=== PATIENT | female | born 1960 | race Caucasian/White ===

== ENCOUNTER → 2020-06-27 00:37 | Outpatient (CLI) | payer OTHER, SELFPAY ==
[2020-06-27 18:59] LABS: SARS-CoV-2 RNA PCR Negative
== END ==
PROVIDERS: PCP Family Medicine Adolescent Medicine; Visit Provider Obstetrics & Gynecology Gynecology
DX: Z01.812 Encounter for preprocedural laboratory examination (principal); Z20.822 Contact with and (suspected) exposure to COVID-19
CPT/HCPCS: C9803; U0003; U0005

== ENCOUNTER 2020-06-27 08:38 | Outpatient (CLI) | payer OTHER, SELFPAY ==
--- NOTE | 2020-06-27 08:50 | ECG_ITS ---
Measurements Intervals [place] Rate: 70 P: 12 WA: 143 QRS: 40 QRSD: 97 T: 45 QT: 380 QTc: 413 Interpretive Statements SINUS RHYTHM BASELINE ARTIFACT- II, III, AVF NORMAL ECG Electronically Signed On 06-27-2020 9:05:49 DINKEY DISPATCHER by Pipe Miller D.O.
[2020-06-27 09:21] LABS: Potassium 4.2 mmol/L (3.4-5.0)
[2020-06-27 09:48] LABS: Anion Gap 5 mmol/L (8-16); Blood Urea Nitrogen 21 mg/dL (7-17); Calcium 9.3 mg/dL (8.4-10.2); Carbon Dioxide 33 mmol/L (22-30); Chloride 104 mmol/L (98-107); Estimated Glomerular Filt Rate > 60; Glucose 112 mg/dL (65-105); Sodium 142 mmol/L (137-145)
== END 2020-06-27 08:39 | disposition home or self-care (01) ==
LOC: ANHSURGERY 08:40
PROVIDERS: Anesthesiology; PCP Family Medicine Adolescent Medicine; Visit Provider Obstetrics & Gynecology Gynecology
DX: E11.9 Type 2 diabetes mellitus without complications (principal); Z01.818 Encounter for other preprocedural examination
CPT/HCPCS: 36415; 80048; 93005

== ENCOUNTER 2020-06-30 02:06 | Day surgery (SDC) | payer OTHER, SELFPAY ==
[2020-06-24 10:07] VITALS: BMI 55.7
--- NOTE | 2020-06-27 15:22 | P.PNAN_ITS ---
Anes - Initial Pre Proc Eval Procedure: Operation Date: 06/30/20 11:30 Proposed Procedures p Hysteroscopy, Dilation and Curettage - Jennifer Ramirez MD Date/Time: 06/27/20 15:22 Surgeon: Jennifer Ramirez MD Pre Op Diagnosis: post menopausal bleeding Patient Data Age: 59 Gender: F Height: 1.52 m Weight: 129.5 kg Allergies Allergy/AdvReac Type Severity Reaction Status Date / Time No Known Allergies Allergy Verified 06/30/20 09:27 Home Medications Medication Instructions Recorded Confirmed Type albuterol 90 mcg INHALATION DAILY PRN 06/24/20 06/30/20 History atorvastatin 10 mg PO DAILY 06/24/20 06/30/20 History losartan 25 mg PO DAILY 06/24/20 06/30/20 History pantoprazole 40 mg PO DAILY 06/24/20 06/30/20 History Patient hx anesthesia problems: none Family hx anesthesia problems: none PMFSH Past Medical History Medical History (Updated 06/30/20 @ 08:17 by Jennifer Ramirez MD) Asthma Chronic GERD HTN (hypertension) Hyperlipidemia Morbid obesity with BMI of 50.0-59.9, adult JOSUÉ on CPAP Osteoarthritis Type 2 diabetes mellitus Surgical History Surgical History (Updated 06/30/20 @ 08:16 by Jennifer Ramirez MD) H/O hand surgery x2 H/O ventral hernia repair History of x 4 Status post hysteroscopic polypectomy 2004 and 2017 Family History Family History (Updated 01/21/17 @ 10:49 by DOCTOR UNKNOWN) Father Family history of premature coronary heart disease, Onset Age: 64 Hypertension Family history of elevated blood lipids Family history of diabetes mellitus in first degree relative Patient's father is Mother Family history of premature coronary heart disease, Onset Age: 64 Hypertension Family history of elevated blood lipids Family history of diabetes mellitus in first degree relative Patient's mother is Other Cerebrovascular accident Diabetes mellitus Family history of arthritis Family history of gout Social History Social History Smoking status: Never smoker Alcohol intake: never Substance use: never Living arrangements: with family Spiritual care concerns: No Anes - Eval Final PreProcedure Day of Procedure 06/27/20 15:22 Patient weight: obese Heart: regular rate and rhythm Lungs: clear to auscultation and normal air movement Airway: Mallampati scale class II Neurological: alert and oriented Last oral intake: >/= 8 hours ASA classification: III Emergent: no Anesthetic plan: proceed Anesthesia type and monitoring: general LMA and ETT Informed Consent: The patient's anesthetic plan and its attendant risks and be nefits were discussed with the patient/family/POA. Questions were solicited and answers provided to the satisfaction of the patient/family/POA.
--- NOTE | 2020-06-30 08:11 | PM.HPGS ---
History of Present Illness History of Present Illness Consent: Risks, benefits, and alternatives have been discussed and questions answered. Patient agrees to proceed with procedure. Chief complaint: post menopausal bleeding Narrative: Danielle Carter is a 59 year old female who was initially seen in April of 2017 for postmenopausal bleeding. The patient underwent a hysteroscopy at that time which showed polyps. The patient did not follow-up since that time until June 19, 2020. On arrival she states she has continued to have bleeding since the procedure in 2018 and more recently for the past 2 months has had bleeding every day. She did not inform the office of the continued bleeding. Is recommended to the patient she proceed with D&C hysteroscopy again as it has been 3 years. Risks of infection, bleeding, and perforation were reviewed with the patient. The possible pathology was also reviewed. Patient states understanding and agrees to proceed. In addition the patient states that she has taken herself off of her metformin in September of 2019 because she was getting sick. She did not follow up with her primary at that time or since then. Review of Systems Review of Systems: Narrative: not repeated day of surgery; patient states no changes in status PMFSH Past Medical History Medical History (Updated 06/30/20 @ 08:17 by Jennifer Ramirez MD) Asthma Chronic GERD HTN (hypertension) Hyperlipidemia Morbid obesity with BMI of 50.0-59.9, adult JOSUÉ on CPAP Osteoarthritis Type 2 diabetes mellitus Surgical History Surgical History (Updated 06/30/20 @ 08:16 by Jennifer Ramirez MD) H/O hand surgery x2 H/O ventral hernia repair History of x 4 Status post hysteroscopic polypectomy 2004 and 2017 Family History Family History (Updated 01/21/17 @ 10:49 by DOCTOR UNKNOWN) Father Family history of premature coronary heart disease, Onset Age: 64 Hypertension Family history of elevated blood lipids Family history of diabetes mellitus in first degree relative Patient's father is Mother Family history of premature coronary heart disease, Onset Age: 64 Hypertension Family history of elevated blood lipids Family history of diabetes mellitus in first degree relative Patient's mother is Other Cerebrovascular accident Diabetes mellitus Family history of arthritis Family history of gout Social History Social History Smoking status: Never smoker Alcohol intake: never Substance use: never Living arrangements: with family Spiritual care concerns: No Meds Home Medications and Allergies Home Medications Medication Instructions Recorded Confirmed Type albuterol 90 mcg INHALATION DAILY PRN 06/24/20 06/24/20 History atorvastatin 10 mg PO DAILY 06/24/20 06/24/20 History losartan 25 mg PO DAILY 06/24/20 06/24/20 History pantoprazole 40 mg PO DAILY 06/24/20 06/24/20 History Allergies Allergy/AdvReac Type Severity Reaction Status Date / Time No Known Allergies Allergy Verified 06/24/20 09:46 Exam Const: General: healthy appearing and alert Orientation/consciousness: patient oriented x3 Resp: Effort & Inspection: normal respiratory effort Auscultation: clear to auscultation bilaterally Cardio: Rate: regular rate Rhythm: regular rhythm GI: GI Palp: Yes Soft to palpation, No Tenderness to palpation present (GI) and No Palpable mass present : External Female Exam: normal external appearance Speculum Exam - Vagina: normal appearance of the vagina and normal vaginal discharge Speculum Exam - Cervix: normal appearance of the cervix Bimanual exam- vagina & uterus: other (suboptimal due to panus) Bimanual Exam- Adnexa, other: No adnexal tenderness Neuro: General: patient oriented x3 Assessment and Plan Assessment and plan (1) Post-menopausal bleeding: Code(s): N95.0 - Postmenopausal bleeding Status: Acut
[2020-06-30] MEDS: ACETAMINOPHEN 500 MG TABLET 1000 MG PO (09:48)
[2020-06-30] MEDS: LACTATED RINGERS 1,000 ML 30 ML IV CONT (09:48)
[2020-06-30 09:53] VITALS: BP 146/55; PULSE 86; RESP 20; TEMP 36.4; O2SAT 97
--- NOTE | 2020-06-30 10:33 | WPDHPUPDATE1 ---
History and Physical Update Update Date/Time: 06/30/20 10:33 History and Physical has been reviewed, including an updated exam of the patient. There are NO changes in the patient's condition. Risks, benefits, and alternatives have been discussed and questions answered. Patient agrees to proceed with procedure.
[2020-06-30] MEDS: KETOROLAC 30 MG/ML VIAL (*BKC) IV PUSH (11:08)
--- NOTE | 2020-06-30 11:16 | PM.PROC ---
Procedure Note - Detailed Date of procedure: 06/30/20 Pre-op diagnosis: post menopausal bleeding Post-op diagnosis: same Procedure performed: D and C hysteroscopy with MyoSure resection Description of procedure: The patient was taken to the operating room and placed under anesthesia in the dorsal lithotomy position. She was prepped and draped in the usual sterile fashion. [place] speculum was placed in the vagina and the cervix is not visible the extra long P[place] speculum is used and the cervix is able to be identified and grasped on the anterior lip with a tenaculum. The cervix is injected with 1% lidocaine and dilated with Hegar 6. The long speculum is removed in the regular [place] speculum is able to visualize the cervix now that it is pulled down with the tenaculum. The hysteroscope was placed with the stated findings. Medium sharp curette is used to sharply curette the endometrium until a good uterine cry was noted in all areas. The hysteroscope was replaced and an additional abnormal areas are still visible. Decision was made to use the MyoSure to resect the abnormal lining. The fluid imbalance of 1L in and 540 out was noted at the end of the 1 later had. The abnormal areas at this time had already been removed therefore the MyoSure device is removed and all instruments are removed. Sponge, needle, and instrument counts are correct per the OR staff. Anesthesia: MAC and local Surgeon: Jennifer Ramirez MD Estimated blood loss (mL): 25 Drains: No Packing: No Pathology: yes (endometrial curettings and shavings) Complications: No immediate complications Condition: stable Disposition: PACU Findings: The uterus sounds to 10cm. There are multiple calcified lesions throughout the cavity. Most are thin and wispy appearing a few are sessile.
[2020-06-30 11:20] VITALS: BP 137/75; PULSE 80; RESP 18; O2SAT 98
--- NOTE | 2020-06-30 11:21 | SUR.OPER ---
DR ESPAÑA INFORMED OF FLUID DEFICET AND RESPONDED.
[2020-06-30 11:27] LABS: Glucose Point of Care 100 (65-105)
[2020-06-30] MEDS: fentaNYL CITRATE INJ (*CRX) 100 MCG/2 ML VIAL 25 MCG IV PUSH ×3 (11:32→11:42)
[2020-06-30 11:50] VITALS: BP 141/72; PULSE 71; RESP 20
[2020-06-30 12:20] VITALS: BP 122/70; PULSE 73; RESP 20
[2020-06-30 12:50] VITALS: BP 112/92; PULSE 56; RESP 20
== END 2020-06-30 13:06 | disposition home or self-care (01) ==
PROVIDERS: PCP Family Medicine Adolescent Medicine; Visit Provider Obstetrics & Gynecology Gynecology
PROC: 0U5B8ZZ Destruction of Endometrium, Via Natural or Artificial Opening Endoscopic (ICD-10-PCS; CPT 58563; principal; 2020-06-30 11:30)
DX: N95.0 Postmenopausal bleeding (principal); D25.0 Submucous leiomyoma of uterus; N84.0 Polyp of corpus uteri; I10 Essential (primary) hypertension; E78.5 Hyperlipidemia, unspecified; J45.909 Unspecified asthma, uncomplicated; K21.9 Gastro-esophageal reflux disease without esophagitis; G47.33 Obstructive sleep apnea (adult) (pediatric); E66.01 Morbid (severe) obesity due to excess calories; Z68.43 Body mass index [BMI] 50.0-59.9, adult
CPT/HCPCS: 58561; 36415; 80048; 82948; 88305; 93005; A9270; C9803; J1100; J1885; J2250; J2405; J2704; J3010; J7030; J7120; U0003; U0005

== ENCOUNTER → 2020-08-18 12:48 | Outpatient (CLI) | payer OTHER, SELFPAY ==
--- NOTE | ~2020-08-18 | DEXA_ITS ---
Bone Density Report Name: Danielle Carter Age: 59 Sex: Female Ethnicity: White Date of : 1960 Indication: postmenopausal; screening for osteoporosis; height loss; asthma or emphysema; Referring Provider: ANDRÉS ESPAÑA Study: Bone densitometry was performed. Exam Date: August 18, 2020 Accession number: [id number] Bone Density: Region BMD T-score Z-score Classification AP Spine (L1-L4) 0.898 -1.4 0.1 Osteopenia Femoral Neck (Left) 0.642 -1.9 -0.6 Osteopenia Total Hip (Left) 0.920 -0.2 0.8 Normal Femoral Neck (Right) 0.793 -0.5 0.8 Normal Total Hip (Right) 0.998 0.5 1.4 Normal Total Hip Mean 0.959 0.2 1.1 Normal World Health Organization criteria for BMD impression classify patients as: Normal (T-score at or above -1.0), Osteopenia (T-score between -1.0 and -2.5), or Osteoporosis (T-score at or below -2.5). 10-year Fracture Risk(1): Major Osteoporotic Fracture 7.1% Hip Fracture 0.7% Reported Risk Factors: [place] (), Neck BMD=0.642, BMI=53.8 Input outside FRAX(R) limits. Adjusted to:Oezpbc=170 kg (1) FRAX(R) Version 3.08. Fracture probability calculated for an untreated patient. Fracture probability may be lower if the patient has received treatment. Clinical Information Provided by Patient: Has the following medical conditions: Asthma or Emphysema Patient maximum height was 63 Menopause Age: 45 Does not regularly consume dairy products Drinks caffeinated beverages Onset of menses at age 12 Number of children 4 Impression: The patient has low bone mass, based on the Left Femoral Neck T-score. The patient has an estimated ten-year risk of hip fracture of 0.7% and an estimated ten-year risk of major fracture of 7.1%, based on the WHO FRAX algorithm. Discussion: BONE DENSITY IS LOW AT ONE OR MORE SKELETAL SITES. This patient's lowest T-score is low at one or more skeletal sites. It meets the World Health Organization's (WHO) criteria for ?low bone mass? (T-score between -1.0 and -2.5). The patient's 10-year risk of fracture as calculated by FRAX is less than the threshold where pharmacological therapy is recommended by the National Osteoporosis Foundation (NOF). However, all treatment decisions require clinical judgment and consideration of individual patient factors, including patient preferences, comorbidities, previous drug use, risk factors not captured in the FRAX model (e.g., frailty, falls, vitamin D deficiency, increased bone turnover, interval significant decline in bone density) and possible under or overestimation of fracture risk by FRAX. The patient should follow a healthful lifestyle (good nutrition with adequate calcium and vitamin D, and appropriate weight-bearing exercise). Follow-Up: Consider repeating this study in 2 to 3 years to reassess this patient's
== END ==
PROVIDERS: Visit Provider Obstetrics & Gynecology Gynecology
DX: Z78.0 Asymptomatic menopausal state (principal); M85.88 Other specified disorders of bone density and structure, other site; M85.852 Other specified disorders of bone density and structure, left thigh
CPT/HCPCS: 77080

== ENCOUNTER 2020-10-28 15:36 | Outpatient (CLI) | payer MEDICARE, SELFPAY ==
--- NOTE | ~2020-10-28 | MM_ITS ---
EXAMINATION: MM screening [facility] BI w [place] HISTORY: Screening mammogram TECHNIQUE: Craniocaudal and mediolateral oblique 3-D tomosynthesis images were obtained and synthetic 2-D images were generated. CAD analysis was submitted and interpreted. COMPARISON: 09/25/2018, 02/10/2017, 07/03/2015 BREAST PARENCHYMAL COMPOSITION: There are scattered areas of fibroglandular density. FINDINGS: There is no evidence of suspicious mass, calcification, or architectural distortion to sugg est malignancy in either breast. There has been no suspicious interval change. IMPRESSION: 1. No mammographic evidence of malignancy. 2. Recommend routine screening mammography in one year. BI-RADS Category 1: Negative Reviewed, dictated and finalized at location A.
== END 2020-10-28 15:37 | disposition home or self-care (01) ==
LOC: ANHIMG 15:41
PROVIDERS: PCP Family Medicine Adolescent Medicine; Visit Provider Obstetrics & Gynecology Gynecology
DX: Z12.31 Encounter for screening mammogram for malignant neoplasm of breast (principal)
CPT/HCPCS: 77063; 77067

== ENCOUNTER 2021-04-16 15:13 | Outpatient (CLI) | payer MEDICARE, SELFPAY ==
--- NOTE | ~2021-04-16 | US_ITS ---
EXAMINATION: US pelvic complete w TV DATE: 04/16/2021 16:20 INDICATION: Postmenopausal bleeding TECHNIQUE: Multiple transabdominal and endovaginal sonographic images of the pelvis were obtained. COMPARISON: 07/13/2013 FINDINGS: The uterus measures 7.8 x 3.5 x 3.8 cm. The endometrial complex measures 7 mm. The ovaries are not visualized however no adnexal abnormality is seen. Nabothian cysts are noted in the cervix. T here is no free fluid in the pelvis. IMPRESSION: 1. Endometrial thickening which may be due to hyperplasia, polyp, or malignancy. Endometrial sampling is recommended. Reviewed, dictated and finalized at location F. L CODER IMPRESSION: 1. Endometrial thickening which may be due to hyperplasia, polyp, or malignancy . Endometrial sampling is recommended.
== END 2021-04-16 15:14 | disposition home or self-care (01) ==
PROVIDERS: PCP Family Medicine Adolescent Medicine; Visit Provider Obstetrics & Gynecology Gynecology
DX: N95.0 Postmenopausal bleeding (principal)
CPT/HCPCS: 76830; 76856

== ENCOUNTER 2021-05-05 14:48 | Emergency (ER) | payer MEDICARE, SELFPAY | END 2021-05-05 14:53 | disposition left against medical advice (07) | LOC: ANHED 15:12 | PROVIDERS: PCP Family Medicine Adolescent Medicine | DX: Z53.21 Procedure and treatment not carried out due to patient leaving prior to being seen by health care provider (principal) | CPT/HCPCS: 99199 ==

== ENCOUNTER 2021-06-30 09:38 | Emergency (ER) | payer MEDICARE, SELFPAY ==
[2021-06-30 10:00] VITALS: BP 148/69; PULSE 82; RESP 24; TEMP 36.3; O2SAT 99
--- NOTE | 2021-06-30 10:03 | ED.FEMALEGU ---
HPI - Female Genitourinary General Chief complaint: Urogenital-Female Stated complaint: UTI Time Seen by Provider: 06/30/21 10:03 Source: patient Mode of arrival: ambulatory Limitations: no limitations History of Present Illness HPI Narrative: 60-year-old female presents with complaint of left flank pain rating around to left lower abdomen. Complaint of dysuria, urinary frequency. Symptoms for 2 days, progressively getting worse. Reports history of kidney infection. Denies fever, chills, nausea, vomiting, fatigue. No history of kidney stones. All systems reviewed and negative except as noted above. Related Data Home Medications Medication Instructions Recorded Confirmed albuterol 90 mcg INHALATION DAILY PRN 06/24/20 06/30/20 atorvastatin 10 mg PO DAILY 06/24/20 06/30/20 losartan 25 mg PO DAILY 06/24/20 06/30/20 pantoprazole 40 mg PO DAILY 06/24/20 06/30/20 Allergies Allergy/AdvReac Type Severity Reaction Status Date / Time No Known Allergies Allergy Verified 06/30/21 10:20 Review of Systems Review of Systems: CONSTITUTIONAL: Denies fever, chills, or sweats. EYES: Denies visual changes, redness, or discharge. ENT: Denies rhinorrhea, congestion, sore throat, or otalgia. CARDIOVASCULAR: Denies chest pain, palpitations, or edema. RESPIRATORY: Denies cough or dyspnea. GASTROINTESTINAL: Denies abdominal pain, nausea, vomiting, or diarrhea. GENITOURINARY: Reports dysuria, frequency. Denies hematuria. SKIN: Denies rash or itching. MUSCULOSKELETAL: Denies back pain, joint pain, or myalgia. NEUROLOGIC: Denies headache, numbness, or weakness. PSYCHIATRIC: Denies anxiety or depression. All other systems reviewed are negative, except as documented in HPI. [facility] Past Medical History Medical History (Updated 06/30/21 @ 10:24 by Myesha South NP) Asthma Chronic GERD HTN (hypertension) Hyperlipidemia Morbid obesity with BMI of 50.0-59.9, adult JOSUÉ on CPAP Osteoarthritis Type 2 diabetes mellitus Surgical History Surgical History (Updated 06/30/20 @ 08:16 by Jennifer Ramirez MD) H/O hand surgery x2 H/O ventral hernia repair History of x 4 Status post hysteroscopic polypectomy 2004 and 2018 Family History Family History (Updated 01/21/17 @ 10:49 by DOCTOR UNKNOWN) Father Family history of premature coronary heart disease, Onset Age: 64 Hypertension Family history of elevated blood lipids Family history of diabetes mellitus in first degree relative Patient's father is Mother Family history of premature coronary heart disease, Onset Age: 64 Hypertension Family history of elevated blood lipids Family history of diabetes mellitus in first degree relative Patient's mother is Other Cerebrovascular accident Diabetes mellitus Family history of arthritis Family history of gout Social History Social History Smoking status: Never smoker Alcohol intake: never Substance use: never Spiritual care concerns: No Comments At time of signature, agree with nursing past medical, surgical, social and family history. There is no relevant family history pertinent to the presenting complaint. Exam Narrative: GENERAL: This is a well-nourished, well-developed patient, in no apparent distress. HEAD: normocephalic, atraumatic. EYES: PERRL. Sclera clear/white. Vision is grossly intact. EARS: External ears normal, auditory canals clear and without drainage, TMs normal without perforation. Hearing grossly intact. NOSE: External nose normal with no obvious nasal discharge, nares without redness, no rhinorrhea. THROAT: Mucous membranes moist, posterior pharynx clear. NECK: Neck supple, non-tender without lymphadenopathy, masses or thyromegaly. CARDIOVASCULAR: Regular rate and rhythm without murmurs, gallops, or rubs. RESPIRATORY: Clear to auscultation. Breath sounds equal bilaterally. No wheezes, rales, or rhonchi. GASTROINTESTINAL: A
== END 2021-06-30 10:30 | disposition home or self-care (01) ==
PROVIDERS: Emergency Provider Nurse Practitioner Family; PCP Family Medicine Adolescent Medicine
DX: N39.0 Urinary tract infection, site not specified (principal); J45.909 Unspecified asthma, uncomplicated; K21.9 Gastro-esophageal reflux disease without esophagitis; I10 Essential (primary) hypertension; E78.5 Hyperlipidemia, unspecified; G47.33 Obstructive sleep apnea (adult) (pediatric); M19.90 Unspecified osteoarthritis, unspecified site; E11.9 Type 2 diabetes mellitus without complications; E66.01 Morbid (severe) obesity due to excess calories; Z68.43 Body mass index [BMI] 50.0-59.9, adult
CPT/HCPCS: 81003; 87077; 87086; 87186; 99213; G0463

== ENCOUNTER 2021-07-10 11:49 | Emergency (ER) | payer MEDICARE, SELFPAY ==
--- NOTE | ~2021-07-10 | CT_ITS ---
EXAMINATION: CT abdomen pelvis w con INDICATION: Right flank pain TECHNIQUE: Computed tomographic images of the abdomen and pelvis were obtained after the administrati on of 100 cc of Omnipaque 350 intravenous contrast. The dose-length product (DLP) was 1517.16 mGy-cm. Automated exposure control and iterative reconstruction technique were employed. COMPARISON: 08/20/2013 FINDINGS: The lung bases are clear. The heart size is normal. There is a small sliding hiatal hernia. The liver, spleen, pancreas, and adrenal glands are normal. Stones are present in the nondistended g allbladder. The kidneys are unremarkable. No stones are identified in the kidneys, ureters, or bladde r. There is no hydronephrosis or hydroureter. No pathologically enlarged abdominal or pelvic lymph no felisha are identified. There is no free intraperitoneal gas or evidence of bowel obstruction. There is m ild lumbar spondylosis. IMPRESSION: 1. No CT correlate for the patient's symptoms. 2. Cholelithiasis Reviewed, dictated and finalized at location B.
[2021-07-10 11:58] VITALS: BP 181/110; PULSE 104; RESP 20; TEMP 37.1; O2SAT 98
[2021-07-10 12:26] LABS: Basophils Absolute Auto 0.1 K/mm3 (0.0-0.1); Eosinophils Absolute Auto 0.3 K/mm3 (0-0.3); Eosinophils Percent Auto 2.6 % (0-4.4); Hematocrit 46.1 % (37.0-47.0); Hemoglobin 14.6 g/dL (12.0-15.0); Immature Granulocyte Absolute 0.05 K/mm3 (0.00-0.031); Immature Granulocyte Percent A 0.5 % (0-0.5); Lymphocytes Absolute Auto 2.69 K/mm3 (0.9-3.2); Lymphocytes Percent Auto 27.7 % (18.3-44.2); Mean Corpuscular HGB Conc 31.7 g/dl (32-36); Mean Corpuscular Hemoglobin 28.2 pg (26-34); Mean Corpuscular Volume 89.2 fl (80-100); Mean Platelet Volume 10.4 fl (7.4-10.4); Monocytes Absolute Auto 0.8 K/mm3 (0.1-0.6); Monocytes Percent Auto 8.7 % (2.6-8.5); Neutrophils Absolute Auto 5.8 K/mm3 (1.3-6.7); Neutrophils Percent Auto 59.5 % (45.5-73.1); Platelet Count Result 264 k/mm3 (150-375); Red Blood Count 5.17 M/mm3 (4.2-5.4); Red Cell Distribution Width 13.5 % (11.5-14.5); White Blood Count 9.7 K/mm3 (4.5-10.0)
[2021-07-10 12:34] LABS: Add Urine Microscopic? YES; Appearance Urine Cloudy (Clear); Bacteria Urine Trace /hpf; Bilirubin Urine Negative (Negative); Blood Urine 2+ (Negative); Color Urine Amber (Yellow); Glucose Urine UA Negative (Negative); Ketones Urine Negative (Negative); Leukocyte Esterase Ur 3+ LEU/UL (Negative); Mucus Urine Rare /lpf; Nitrate Urine Negative (Negative); Protein Urine Negative (Negative); RBC Urine 21-50 /hpf (0-2); Specific Grav Ur 1.013 (1.001-1.035); Squamous Epithelial Cell Urine Many /hpf (Few); Urobilinogen Urine Negative mg/dL (<2.0); WBC Urine >75 /hpf
[2021-07-10 12:38] LABS: Alanine Aminotransferase 16 U/L (4-35); Albumin Level 4.3 g/dL (3.5-5.1); Alkaline Phosphatase 121 U/L (38-126); Anion Gap 5 mmol/L (8-16); Aspartate Amino Transferase 27 U/L (14-36); Bilirubin,Total 0.5 mg/dL (0.2-1.3); Blood Urea Nitrogen 16 mg/dL (7-17); Calcium 8.9 mg/dL (8.4-10.2); Carbon Dioxide 29 mmol/L (22-30); Chloride 106 mmol/L (98-107); Estimated CRCL calculation 72 ml/min; Estimated Glomerular Filt Rate > 60; Glucose 118 mg/dL (65-110); Lipase 68 U/L (23-300); Sodium 140 mmol/L (137-145)
--- NOTE | 2021-07-10 15:02 | ED.FEMALEGU ---
HPI - Female Genitourinary General Chief complaint: Urogenital-Female Stated complaint: Urinary pain Time Seen by Provider: 07/10/21 14:18 Source: patient Mode of arrival: ambulatory Limitations: no limitations History of Present Illness HPI Narrative: 60-year-old female presents today with continued flank pain after being on antibiotics for UTI. Patient states back pain started about 3 weeks ago. Patient was seen by her primary put on Cipro and has noted no relief. Patient denies fevers, body aches, chills, nausea, vomiting, or diarrhea. Related Data Home Medications Medication Instructions Recorded Confirmed albuterol 90 mcg INHALATION DAILY PRN 06/24/20 06/30/20 atorvastatin 10 mg PO DAILY 06/24/20 06/30/20 losartan 25 mg PO DAILY 06/24/20 06/30/20 pantoprazole 40 mg PO DAILY 06/24/20 06/30/20 Allergies Allergy/AdvReac Type Severity Reaction Status Date / Time No Known Allergies Allergy Verified 06/30/21 10:20 Review of Systems Review of Systems: CONSTITUTIONAL: Denies fever, chills, or sweats. EYES: Denies visual changes, redness, or discharge. ENT: Denies rhinorrhea, congestion, sore throat, or otalgia. CARDIOVASCULAR: Denies chest pain, palpitations, or edema. RESPIRATORY: Denies cough or dyspnea. GASTROINTESTINAL: Denies abdominal pain, nausea, vomiting, or diarrhea. GENITOURINARY: Denies dysuria or hematuria. SKIN: Denies rash or itching. MUSCULOSKELETAL: Flank pain. Denies joint pain, or myalgia. NEUROLOGIC: Denies headache, numbness, dizziness, or weakness. PSYCHIATRIC: Denies anxiety or depression. [facility] Past Medical History Medical History Asthma Chronic GERD HTN (hypertension) Hyperlipidemia Morbid obesity with BMI of 50.0-59.9, adult JOSUÉ on CPAP Osteoarthritis Type 2 diabetes mellitus Surgical History Surgical History H/O hand surgery x2 H/O ventral hernia repair History of x 4 Status post hysteroscopic polypectomy 2004 and 2018 Family History Family History Father Family history of premature coronary heart disease, Onset Age: 64 Hypertension Family history of elevated blood lipids Family history of diabetes mellitus in first degree relative Patient's father is Mother Family history of premature coronary heart disease, Onset Age: 64 Hypertension Family history of elevated blood lipids Family history of diabetes mellitus in first degree relative Patient's mother is Other Cerebrovascular accident Diabetes mellitus Family history of arthritis Family history of gout Social History Social History Smoking status: Never smoker Alcohol intake: never Substance use: never Spiritual care concerns: No Exam Narrative: GENERAL: Well-appearing, well-nourished, and in no acute distress. HEAD: Normocephalic, atraumatic. EYES: PERRLA and EOMI. ENT: Nares clear, no rhinorrhea or epistaxis. Mucous membranes moist. Oropharynx without tonsillar hypertrophy exudate or other lesions. Bilateral TMs pearly freed nonbulging NECK: Supple. No adenopathy or masses. No carotid bruits or JVD CHEST: Clear to auscultation. No respiratory distress. No wheezes rales or rhonchi HEART: Regular rate and rhythm. No murmur heard. Normal peripheral pulses. ABDOMEN: No CVA tenderness. Soft, nontender, nondistended, normal active bowel sounds. EXTREMITIES: Normal range of motion. No edema. SKIN: Warm, dry, no rash. NEURO: No focal deficits. Alert and oriented x3. PSYCH: Normal mood and affect. Course LPC/PA Physician Supervision Labs and CT reviewed with patient. Patient aware no stones or pyelonephritis noted on imaging. Discussed urine culture that is previously done. Patient has been on Cipro and urine was resist
== END 2021-07-10 16:25 | disposition home or self-care (01) ==
PROVIDERS: Emergency Medicine; Emergency Provider Nurse Practitioner Family; PCP Family Medicine Adolescent Medicine
DX: N39.0 Urinary tract infection, site not specified (principal); J45.909 Unspecified asthma, uncomplicated; I10 Essential (primary) hypertension; E78.5 Hyperlipidemia, unspecified; E11.9 Type 2 diabetes mellitus without complications; G47.33 Obstructive sleep apnea (adult) (pediatric); K21.9 Gastro-esophageal reflux disease without esophagitis; M19.90 Unspecified osteoarthritis, unspecified site; E66.01 Morbid (severe) obesity due to excess calories; Z68.43 Body mass index [BMI] 50.0-59.9, adult; K80.20 Calculus of gallbladder without cholecystitis without obstruction
CPT/HCPCS: 36415; 74177; 80053; 81001; 83690; 85025; 87077; 87086; 87186; 99284; Q9967

== ENCOUNTER 2021-07-15 08:35 | Outpatient (CLI) | payer MEDICARE, SELFPAY ==
--- NOTE | 2021-07-15 08:39 | ECG_ITS ---
Measurements Intervals [place] Rate: 74 P: -3 SC: 123 QRS: 30 QRSD: 97 T: 34 QT: 385 QTc: 429 Interpretive Statements SINUS RHYTHM BASELINE ARTIFACT LOW QRS VOLTAGE IN PRECORDIAL LEADS [QRS DEFLECTION < 1.0 mV IN CHEST LEADS] NORMAL ECG COMPARED TO ECG 06/27/2020 09:22:39 NO SIGNIFICANT CHANGES Electronically Signed On 07-15-2021 8:51:03 CDT by David Gallagher M.D.
[2021-07-15 09:35] LABS: Amylase 76 U/L (30-110)
== END 2021-07-15 08:36 | disposition home or self-care (01) ==
LOC: ANHSURGERY 08:38
PROVIDERS: PCP Family Medicine Adolescent Medicine; Visit Provider Surgery
DX: Z01.818 Encounter for other preprocedural examination (principal); K80.10 Calculus of gallbladder with chronic cholecystitis without obstruction; I10 Essential (primary) hypertension
CPT/HCPCS: 36415; 82150; 86850; 86900; 86901; 93005

== ENCOUNTER 2021-07-16 01:54 | Day surgery (SDC) | payer MEDICARE, SELFPAY ==
[2021-07-14 14:36] VITALS: BMI 55.3
--- NOTE | 2021-07-14 14:47 | PC.NURSE ---
Report to the Outpatient Waiting Room, entrance under the green pavilion located off [facility], at time 10:00 on date 07/16/21. OR Time: 12:00. - You and your visitor will be asked a series of questions to screen for COVID 19 for your protection. - A mask is required within the hospital. One visitor will be allowed to accompany the patient into the hospital. Patients visitor will be instructed to remain with patient at all times or leave the building. We will allow the visitor to come back to the postoperative area when patient is ready. Preoperative COVID Testing Requirements: TO BRING COPY OF CARD No COVID Test needed if: (proof is required; if not received patient will have Rapid Test prior to entry) - Patient has received COVID Vaccine at least 14 days prior to procedure date or - Patient has positive COVID test result within last 90 days of surgery date. COVID Test needed if above criteria is not met Patients may have clear liquids (water, carbonated beverages, clear teas, apple juice) until 3 hours prior to surgery (9:00) with a maximum of 20 ounces. - No food from midnight until time of surgery Take the following medications with a SIP of water the morning of surgery: MACROBID, INHALER (IF NEEDED) Medications to discontinue per physician: VITAMINS/SUPPLEMENTS Date to take last dose: NO MORE UNTIL AFTER SURGERY Please no make-up, nail swedish, hairspray, perfume, deodorant, or body powder the day of surgery. No jewelry (including any body piercings) or valuables the day of surgery, leave them at home. Please take a shower or bath the night before, or the morning of, surgery with an antibacterial soap. Wear comfortable, loose fitting clothing. HIBICLENS SHOWER - Jewelry must be removed prior to entering the operating room. Rings and piercings that are not removed may be cut off. - The hospital will not accept responsibility for valuables. - Please leave all valuables, including medications, at home the day of surgery. If you are going home after surgery, a licensed set key driver must drive you home. - NO public transportation without another adult. - We recommend that an adult stay with you for 24 hours following discharge. - We also recommend that you do not drive, make important decision, drink alcoholic beverages, or take any drugs that were not prescribed by your health care provider for at least 24 hours after your discharge time. Follow any additional instructions given to you from your surgeon. Telephone instructions given to SOLEDAD ARREDONDO and asked if any additional questions and then verbalized understanding. Patient advised to call surgeon office or pre surgery nurse liaison [phone] if any additional questions.
--- NOTE | 2021-07-15 15:14 | WPDANESEPPF ---
Anes - Initial Pre Proc Eval Procedure: Operation Date: 07/16/21 12:00 Proposed Procedures p Laparoscopic Cholecystectomy - Mely Sanchez MD Date/Time: 07/15/21 15:14 Surgeon: Mely Sanchez MD Pre Op Diagnosis: cholecystitis with cholelithiasis Patient Data Age: 60 Gender: F Height: 1.52 m Weight: 128.37 kg Allergies Allergy/AdvReac Type Severity Reaction Status Date / Time No Known Allergies Allergy Verified 07/16/21 10:02 Home Medications Medication Instructions Recorded Confirmed Type albuterol 90 mcg INHALATION DAILY PRN 06/24/20 07/14/21 History atorvastatin 10 mg PO DAILY 06/24/20 07/16/21 History losartan 25 mg PO DAILY 06/24/20 07/16/21 History pantoprazole 40 mg PO DAILY 06/24/20 07/16/21 History baclofen 10 mg tablet 10 mg PO TID #30 tablet 07/13/21 07/16/21 Rx nitrofurantoin 100 mg PO Q12H 07/13/21 07/16/21 History monohydrate/macrocrystals 100 mg capsule ergocalciferol (vitamin D2) 1,250 mcg PO 2XW 07/14/21 07/16/21 History [Vitamin D2] progesterone micronized 200 mg 200 mg PO QHS 07/14/21 07/16/21 History capsule Patient hx anesthesia problems: none Family hx anesthesia problems: none Results Review: All pre-operative results and documents have been reviewed as part of the pre-operative evaluation. [facility] Past Medical History Medical History Asthma Chronic GERD HTN (hypertension) Hyperlipidemia Morbid obesity with BMI of 50.0-59.9, adult JOSUÉ on CPAP Osteoarthritis Type 2 diabetes mellitus Surgical History Surgical History H/O hand surgery x2 H/O ventral hernia repair History of x 4 Status post hysteroscopic polypectomy 2004 and 2018 Family History Family History Father Family history of premature coronary heart disease, Onset Age: 64 Hypertension Family history of elevated blood lipids Family history of diabetes mellitus in first degree relative Patient's father is Mother Family history of premature coronary heart disease, Onset Age: 64 Hypertension Family history of elevated blood lipids Family history of diabetes mellitus in first degree relative Patient's mother is Other Cerebrovascular accident Diabetes mellitus Family history of arthritis Family history of gout Social History Social History Smoking status: Former smoker Tobacco type: cigarettes Second hand tobacco smoke exposure: No 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 Alcohol intake: never Substance use: never Substance use type: does not use Living arrangements: with family Gender identity (if verbalized by the patient): Female Sexual Orientation (if Verbalized by the Patient): Straight or Heterosexual Spiritual care concerns: No Agree to blood products: Yes Anes - Eval Final PreProcedure Day of Procedure 07/15/21 15:14 Patient weight: obese Heart: regular rate and rhythm Lungs: clear to auscultation and normal air movement Airway: Mallampati scale class II Neurological: alert and oriented Last oral intake: >/= 8 hours ASA classification: III Emergent: no Anesthetic plan: proceed Anesthesia type and monitoring: general ETT Results Review: All pre-operative results and documents have been reviewed as part of the pre-operative evaluation. Informed Consent: The patient's anesthetic plan and its attendant risks and benefits were discussed with the patient/family/POA. Questions were solicited and answers provided to the satisfaction of the patient/family/POA.
[2021-07-16] VITALS (12 sets, daily range): BP systolic 101–154; BP diastolic 56–94; PULSE 59–93; RESP 14–20; TEMP 36.4–36.6; O2SAT 93–100
[2021-07-16] MEDS: ACETAMINOPHEN 500 MG TABLET 1000 MG PO (10:18)
[2021-07-16] MEDS: LACTATED RINGERS 1,000 ML 30 ML IV CONT ×2 (10:34→14:29)
[2021-07-16] MEDS: KETOROLAC 15 MG/ML VIAL (*BKC) IV PUSH (10:35)
[2021-07-16 10:44] LABS: Glucose Point of Care 93 mg/dl (65-105)
--- NOTE | 2021-07-16 11:59 | WPDHPUPDATE1 ---
History and Physical Update Update Date/Time: 07/16/21 11:59 History and Physical has been reviewed, including an updated exam of the patient. There are NO changes in the patient's condition. Risks, benefits, and alternatives have been discussed and questions answered. Patient agrees to proceed with procedure.
[2021-07-16] MEDS: ceFAZolin 3 GM/D5W 100 ML 100 ML IVPB (12:12)
--- NOTE | 2021-07-16 13:48 | W.PM.PROC2 ---
Procedure Note - Detailed Date of Procedure 07/16/21 Pre-op Diagnosis acute cholecystitis with cholelithiasis Post-op Diagnosis Same Procedure Performed Laparoscopic cholecystectomy Surgeon Mely Sanchez MD Anesthesia General Indications 60 y/o F c acute cholecystitis, cholelithiasis Findings acute cholecystitis, cholelithiasis, impacted stones in neck of gallbladder Description of Procedure The patient was taken to the operating room placed in the supine position. After adequate induction of general anesthesia, the patient was prepped and draped in normal sterile fashion. A time-out was then performed to verify the patient's identity as well as the procedure being performed. I then made a 5 mm incision in the infraumbilical region. Through this, a Veress needle was placed into the peritoneal cavity and CO2 gas was then insufflated. After adequate pneumoperitoneum was achieved, the Veress needle was removed and a 5 mm optiview trocar was placed through this incision under direct visualization. I then placed the laparoscope through this trocar site and under direct visualization placed a further 12 mm subxiphoid port as well as 2 additional 5 mm ports in the right upper abdomen. The gallbladder was then identified and was noted to be inflamed, distended, and full of gallstones. There was extensive omental adhesions to the gallbladder and these were carefully taken down both bluntly and with the cautery. Once free of the adhesions, there was noted to be multiple large impacted gallstones in the neck of the gallbladder. The wall of the gallbladder was very thin and friable in this area as it looked like the gallstones were eroding through the wall. I was able to place a grasper at the dome of the gallbladder and this was retracted anterior and cephalad up over the liver. A 2nd retractor was then placed at the infundibulum and retracted laterally, this allowed visualization of the triangle of Calot. Upon placing this 2nd retractor, the gallbladder wall in the neck began to tear. Multiple large stones were noted to come out of the gallbladder at this point. I then extracted the stones through the 12 mm port site. Even with gentle retraction in the distal gallbladder, the wall continued to tear. Given this, I proceeded with a top down technique. The gallbladder was dissected off the liver bed using the bovie cautery from the dome of the gallbladder to the infundibulum. I then was able to visualize the cystic duct in its entirety from its proximal insertion into the gallbladder, to its distal junction with the common hepatic/common bile duct junction. At this point, I carefully skeletonized the proximal cystic duct with the [place] dissector. I then clipped and transected the proximal cystic duct. Next I visualized the cystic artery. Again the artery was skeletonized, clipped, and transected. Once the gallbladder specimen was completely detached, an endo-pouch was placed through the 12 mm port site. I then placed the gallbladder specimen into the Endo pouch and removed the endo-pouch from the 12 mm port site. The specimen will now be sent to pathology for further review. I then copiously irrigated the right upper quadrant. Hemostasis was noted in the liver bed, the clips were noted to be in good position on both the cystic duct stump and the cystic artery stump. No other pathology was noted in the right upper quadrant. I then moved the laparoscope to the subxiphoid port. No iatrogenic injury or other pathology was noted in the lower abdomen. I then closed the 12 mm trocar site under direct visualization using the Bartolome cone and 0 Vicryl suture. At this point, the abdomen was desufflated and all ports removed. All port sites were then closed with 4.O Monocryl subcuticular sutures. Dermabond was placed on each incision. The patient tolerated the procedure well, was extubated in the operating room postoperative and will be transferred to the
[2021-07-16 13:50] LABS: Glucose Point of Care 145 mg/dl (65-105)
[2021-07-16] MEDS: fentaNYL CITRATE INJ (*CRX) 100 MCG/2 ML VIAL 25 MCG IV PUSH ×6 (14:07→14:39)
[2021-07-16] MEDS: HYDROmorphone HCL INJ (*CRX) 1 MG/ML SYR 0.5 MG IV PUSH ×2 (14:52→15:04)
[2021-07-16] MEDS: oxyCODONE HCL (*CRX) 5 MG TAB IR PO (15:41)
== END 2021-07-16 17:02 | disposition home or self-care (01) ==
PROVIDERS: PCP Family Medicine Adolescent Medicine; Visit Provider Surgery
PROC: 0FT44ZZ Resection of Gallbladder, Percutaneous Endoscopic Approach (ICD-10-PCS; CPT 47562; principal; 2021-07-16 12:00)
DX: K80.10 Calculus of gallbladder with chronic cholecystitis without obstruction (principal); I10 Essential (primary) hypertension; E11.9 Type 2 diabetes mellitus without complications; J45.909 Unspecified asthma, uncomplicated; K21.9 Gastro-esophageal reflux disease without esophagitis; E78.5 Hyperlipidemia, unspecified; G47.33 Obstructive sleep apnea (adult) (pediatric); E66.01 Morbid (severe) obesity due to excess calories; Z68.43 Body mass index [BMI] 50.0-59.9, adult; Z79.51 Long term (current) use of inhaled steroids; Z87.891 Personal history of nicotine dependence
CPT/HCPCS: 47562; 36415; 82150; 82948; 86850; 86900; 86901; 88304; 93005; A9270; J0330; J0690; J1100; J1170; J1885; J2250; J2405; J2704; J2710; J3010; J7030; J7120

== ENCOUNTER 2021-07-29 08:55 | Outpatient (CLI) | payer MEDICARE, SELFPAY ==
--- NOTE | ~2021-07-29 | XR_ITS ---
EXAMINATION: XR hip BI 2V w AP pelvis DATE: 07/29/2021 09:21 INDICATION: Bilateral hip pain TECHNIQUE: AP view of the pelvis and two views of each hip were obtained. COMPARISON: None. FINDINGS: Bone alignment is normal. There is no fracture. There is mild osteoarthritis of the hips. M ild osteitis pubis is also noted. The soft tissues are unremarkable. A bone island is noted in the ri ght ilium. IMPRESSION: 1. Mild osteoarthritis of the hips. Reviewed, dictated and finalized at location A.
== END 2021-07-29 08:56 | disposition home or self-care (01) ==
LOC: ANHIMG 08:58
PROVIDERS: PCP Family Medicine Adolescent Medicine; Visit Provider Physician Assistant
DX: M16.0 Bilateral primary osteoarthritis of hip (principal)
CPT/HCPCS: 73521

== ENCOUNTER 2021-11-19 09:07 | Outpatient (CLI) | payer MEDICARE, SELFPAY ==
--- NOTE | ~2021-11-19 | MM_ITS ---
EXAMINATION: MM screening dominick BI w aziza HISTORY: Screening TECHNIQUE: Craniocaudal and mediolateral oblique 3-D tomosynthesis images were obtained and synthetic 2-D images were generated. CAD analysis was submitted and interpreted. COMPARISON: Comparison to multiple prior studies sequentially, with oldest reviewed study dated 09/2014. BREAST PARENCHYMAL COMPOSITION: The breasts are almost entirely fatty. FINDINGS: There is no evidence of suspicious mass, calcification, or architectural distortion to sugg est malignancy in either breast. There has been no suspicious interval change. IMPRESSION: 1. No mammographic evidence of malignancy. 2. Recommend routine screening mammography in one year. BI-RADS Category 1: Negative Reviewed, dictated and finalized at location A.
== END 2021-11-19 09:08 | disposition home or self-care (01) ==
PROVIDERS: PCP Family Medicine Adolescent Medicine; Visit Provider Obstetrics & Gynecology Gynecology
DX: Z12.31 Encounter for screening mammogram for malignant neoplasm of breast (principal)
CPT/HCPCS: 77063; 77067

== ENCOUNTER 2022-04-09 11:51 | Emergency (ER) | payer MEDICARE, SELFPAY ==
--- NOTE | ~2022-04-09 | XR_ITS ---
EXAMINATION: XR chest 2V DATE: 04/09/2022 12:25 INDICATION: Shortness of breath, chest pain and left arm pain. TECHNIQUE: PA and lateral views of the chest were obtained. COMPARISON: Chest radiograph dated 04/30/2018 FINDINGS: The lungs remain clear with no focal airspace opacities, pulmonary edema, pleural effusion or pneumot horax. The cardiomediastinal silhouette is normal. Moderate degenerative skeletal changes in the spin e and at the bilateral acromioclavicular joints. Cholecystectomy clips in right upper quadrant. IMPRESSION: 1. No acute cardiopulmonary disease. Reviewed, dictated and finalized at location A. FOREMAN
--- NOTE | 2022-04-09 11:52 | ECG_ITS ---
Measurements Intervals [place] Rate: 102 P: 62 IA: 135 QRS: 26 QRSD: 90 T: 42 QT: 336 QTc: 440 Interpretive Statements SINUS TACHYCARDIA LOW QRS VOLTAGE IN PRECORDIAL LEADS [QRS DEFLECTION < 1.0 mV IN CHEST LEADS] ABNORMAL RHYTHM ECG COMPARED TO ECG 07/15/2021 08:48:04 NO SIGNIFICANT DIFFERENCE Electronically Signed On 04-09-2022 20:04:21 GOLF SUPERINTENDENT by Darshan Main M.D.
[2022-04-09 11:53] VITALS: BP 145/60; PULSE 102; RESP 20; TEMP 36.7; O2SAT 98
[2022-04-09 12:09] LABS: Basophils Absolute Auto 0.1 K/mm3 (0.0-0.1); Basophils Percent Auto 0.7 % (0.2-1.2); Eosinophils Absolute Auto 0.3 K/mm3 (0-0.3); Eosinophils Percent Auto 3.1 % (0-4.4); Hematocrit 44.6 % (37.0-47.0); Hemoglobin 13.8 g/dL (12.0-15.0); Immature Granulocyte Absolute 0.07 K/mm3 (0.00-0.031); Immature Granulocyte Percent A 0.6 % (0-0.5); Lymphocytes Percent Auto 26.9 % (18.3-44.2); Mean Corpuscular HGB Conc 30.9 g/dl (32-36); Mean Corpuscular Volume 90.7 fl (80-100); Mean Platelet Volume 10.3 fl (7.4-10.4); Monocytes Absolute Auto 0.6 K/mm3 (0.1-0.6); Monocytes Percent Auto 5.8 % (2.6-8.5); Neutrophils Absolute Auto 6.8 K/mm3 (1.3-6.7); Neutrophils Percent Auto 62.9 % (45.5-73.1); Platelet Count Result 226 k/mm3 (150-375); Red Blood Count 4.92 M/mm3 (4.2-5.4); Red Cell Distribution Width 13.1 % (11.5-14.5); White Blood Count 10.8 K/mm3 (4.5-10.0)
[2022-04-09 12:20] LABS: Alanine Aminotransferase 21 U/L (6-35); Albumin Level 4.3 g/dL (3.5-5.1); Alkaline Phosphatase 124 U/L (38-126); Anion Gap 4 mmol/L (8-16); Aspartate Amino Transferase 26 U/L (14-36); Bilirubin,Total 0.9 mg/dL (0.2-1.3); Blood Urea Nitrogen 14 mg/dL (7-17); Calcium 8.7 mg/dL (8.4-10.2); Carbon Dioxide 31 mmol/L (22-30); Chloride 105 mmol/L (98-107); Estimated CRCL calculation 92 ml/min; Estimated Glomerular Filt Rate > 60; Glucose 115 mg/dL (65-110); Lipase 63 U/L (23-300); Potassium 3.9 mmol/L (3.4-5.0); Sodium 140 mmol/L (137-145)
[2022-04-09 12:27] LABS: INR 1.2; Prothrombin Time 14.5 Seconds (11.1-14.7)
[2022-04-09 12:28] LABS: Partial Thromboplastin Time 25.9 SECONDS (22.3-36.8)
[2022-04-09 12:31] LABS: Troponin I < 0.012 ng/mL (0.000-0.034)
--- NOTE | 2022-04-09 14:30 | PC.NURSE ---
patient states that the wait is too long and left from waiting room
--- NOTE | 2022-04-09 14:31 | PC.NURSE ---
Patient educated to return to ED if symptoms worsen or continue.
== END 2022-04-09 14:31 | disposition left against medical advice (07) ==
PROVIDERS: Emergency Provider Emergency Medicine; PCP Family Medicine Adolescent Medicine
DX: R07.9 Chest pain, unspecified (principal)
CPT/HCPCS: 36415; 71046; 80053; 83690; 84484; 85025; 85610; 85730; 93005; 99199

== ENCOUNTER 2022-07-12 10:06 | Outpatient (CLI) | payer OTHER, SELFPAY ==
--- NOTE | ~2022-07-12 | CT_ITS ---
Non-contrast Head CT History: Headache, history of pseudotumor cerebri Technique: Axial non-contrast imaging of the brain was performed. Dose reduction technique was used on this scan by utilizing automated exposure control and iterative reconstruction technique. The dose -length product (DLP) was 605.33 mGy-cm. COMPARISON: 10/27/2007 Findings: There is no evidence of intracranial hemorrhage, mass lesion, or acute infarct. Brain par enchyma appears normal. The ventricles and subarachnoid spaces are normal in size. The calvarium ap pears normal. The visualized paranasal sinuses and mastoid air cells are clear. Impression: No significant abnormality seen. Reviewed, dictated and finalized at location . Impression: No significant abnormality seen.
== END 2022-07-12 10:07 | disposition home or self-care (01) ==
PROVIDERS: PCP Family Medicine Adolescent Medicine; Visit Provider Physician Assistant
DX: R51.9 Headache, unspecified (principal)
CPT/HCPCS: 70450

== ENCOUNTER 2023-02-01 09:41 | Outpatient (CLI) | payer OTHER, SELFPAY ==
--- NOTE | ~2023-02-01 | MM_ITS ---
EXAMINATION: MM screening dominick BI w aziza HISTORY: Screening TECHNIQUE: Craniocaudal and mediolateral oblique 3-D tomosynthesis images were obtained and synthetic 2-D images were generated. CAD analysis was submitted and interpreted. COMPARISON: Comparison to multiple prior studies sequentially, with oldest reviewed study dated 09/2014. BREAST PARENCHYMAL COMPOSITION: Breast composed of scattered areas of fibroglandular density FINDINGS: There is no evidence of suspicious mass, calcification, or architectural distortion to sugg est malignancy in either breast. There has been no suspicious interval change. IMPRESSION: 1. No mammographic evidence of malignancy. 2. Recommend routine screening mammography in one year. BI-RADS Category 1: Negative Reviewed, dictated and finalized at location A.
== END 2023-02-01 09:42 | disposition home or self-care (01) ==
PROVIDERS: PCP Family Medicine Adolescent Medicine; Visit Provider Obstetrics & Gynecology Gynecology
DX: Z12.31 Encounter for screening mammogram for malignant neoplasm of breast (principal)
CPT/HCPCS: 77063; 77067

== ENCOUNTER → 2024-08-30 07:08 | Outpatient (CLI) | payer OTHER, SELFPAY ==
--- NOTE | ~2024-08-30 | XR_ITS ---
EXAMINATION: XR hip RT 2V w AP pelvis DATE: 09/05/2024 10:10 INDICATION: Right hip pain TECHNIQUE: Anteroposterior view of the pelvis and anteroposterior and frog-leg lateral views of the r ight hip were obtained. COMPARISON: 07/29/2021 FINDINGS: Bone alignment is normal. No fracture. Mild lumbar spondylosis with severe bilateral lower lumbar fac et osteoarthritis. Moderate osteitis pubis. Unchanged sclerotic bone islands in the left and right in nominate bones. Soft tissues are unremarkable. IMPRESSION: 1. No fracture or acute osseous abnormality. Reviewed, dictated and finalized at location A.
== END ==
PROVIDERS: PCP Nurse Practitioner Family; Visit Provider Nurse Practitioner Family
DX: M25.551 Pain in right hip (principal); M47.896 Other spondylosis, lumbar region
CPT/HCPCS: 73502

== ENCOUNTER 2024-10-11 09:47 | Outpatient (CLI) | payer OTHER, SELFPAY ==
--- NOTE | ~2024-10-11 | MR_ITS ---
MRI of the lumbar spine Clinical History: Spondylosis Technique: Axial T2-weighted images, and sagittal T1-weighted, T2-weighted, and T2 fat-sat images wer e acquired. Findings: There is no fracture or subluxation of lumbar spine. Vertebral bodies maintain normal heigh t and alignment. No suspicious bone marrow signal abnormality seen. At L1-L2, there is mild degenerative spurring. There is mild facet arthropathy. No spinal canal steno sis or neural foraminal narrowing. At L2-L3, there is mild degenerative disc narrowing. No disc bulge or herniation. There is moderate f acet arthropathy. No central canal stenosis or neural foraminal narrowing. At L3-L4, there is minimal disc bulge with moderate facet arthropathy. No central canal stenosis or n eural foraminal narrowing. At L4-L5, there is diffuse disc bulge with advanced facet arthropathy, resulting in severe spinal can al stenosis/thecal sac compression. Neural foramina are preserved. At L5-S1, there is mild disc bulge with severe facet arthropathy. No melany central canal stenosis. Th ere is mild left neural foraminal narrowing. Right neural foramen preserved. Paravertebral soft tissues are unremarkable. Impression: Severe degenerative spondylosis at L4-L5, as detailed above. Mild degenerative change in the remainder of the lumbar spine. Reviewed, dictated and finalized at [facility]. Impression: Severe degenerative spondylosis at L4-L5, as detailed above. Mild degenerative change in the remainder of the lumbar spine.
== END 2024-10-11 09:48 | disposition home or self-care (01) ==
LOC: MICIMG 09:48
PROVIDERS: PCP Nurse Practitioner Family; Visit Provider Nurse Practitioner Family
DX: M47.26 Other spondylosis with radiculopathy, lumbar region (principal)
CPT/HCPCS: 72148

== ENCOUNTER 2024-12-24 08:01 | Outpatient (CLI) | payer OTHER, MEDICAID, SELFPAY ==
--- OUTSIDE RECORDS SUMMARY | 2024-12-24 08:17 | XMS_ITS ---
Author Name Marii PICKERING, MRS. [place] npal Address [address] [place] [address] Phone [phone] Organization [facility] Care Team Providers Care Editor Trade Journal Name Role Phone Shahrzad Colvin Unavailable [phone] Hilda Valentin Unavailable [phone] Rodrigo Aguilar Unavailable [phone] Reason for Referral Not Available Allergies, adverse reactions, alerts No known allergies History of medication use Medication Class Instructions Start Date End Date Baclofen 10 mg Tab 1 tablet orally 3 ti mes per day as needed 2024-11-01 No Data Available Pantoprazole Sodium 40 mg Tab delayed rel TAKE 1 TABLET BY MOUTH EVERY DAY 2024-06-21 No Data Available Losartan Potassium 50 mg Tab TAKE 1 TABLET BY MOUTH ONCE DAILY 2024-01-01 No Data Available Atorvastatin Calcium 10 mg Tab TAKE 1 TABLET BY MOUTH EVERY DAY 2024-06-22 No Data Available Progesterone 200 mg Cap TAKE 1 CAPSULE B Y MOUTH EVERY DAY 2024-06-12 No Data Available Progesterone 100 mg Cap TAKE 1 CAPSULE B Y MOUTH EVERY DAY 2023-01-05 No Data Available Meloxicam 15 mg Tab 1 tablet orally daily 2024-11-01 No Data Available Mounjaro 15 mg/0.5ML Solution Auto-injector INJECT 15 MG (0.5 ML) SUBCUTANEOUSLY WEEKLY WEEK 21 OF THERAPY AND ONGOING 2024-06-05 No Data Available Albuterol Sulfate HFA 108 (90 Base) MCG/ACT Aerosol Solution INHALE 2 PUFFS EVERY 4 HOURS NEEDED FOR SHORTNESS OF BREATH OR FOR WHEEZE 2024-02-06 No Data Available Clotrimazole-Betamethasone 1-0.05 % Crm 1 application topically to affected area 2 times per day 2024-11-01 No Data Available Problem List Problem Status Onset Date Resolved Date Synopsis Moderate persistent asthma, uncomplicated Active 2024-09-12 N/A N/A Type 2 diabetes mellitus wit h diabetic polyneuropathy Active 2024-09-12 N/A N/A Mixed hyperlipidemia Active 2024-09-12 N/A N/A Essential (primary) hypertension Active 2024-09-12 N/A N/A JOSUÉ (obstructive sleep apnea) Active 2024-11-01 N/A wears CPAP QHS, last sleep study done in 2018 Obesity, morbid, BMI 40.0-49.9 Active 2024-11-01 N/A N/A Candidiasis of breast Active 2024-11-01 N/A N/A Other spondylosis with radiculopathy, lumbar region Active 2024-11-01 N/A N/A Encounters Encounters Type Facility Date of Service Diagnosis/Co mplaint Home visit for evaluation and management of new patient requiring medically appropriate examination and moderate level of medical decision making. If using time, at least 60 minutes total time on [facility] 11/01/2024 Moderate persistent asthma, uncomplicatedType 2 diabetes mellitus with diabetic polyneuropathyMixed hyperlipidemiaEssential (primary) hypertensionObstructive sleep apnea (adult) (pediatric)Morbid (severe) obesity due to excess caloriesOther sites of candidiasisOther spondylosis with radiculopathy, lumbar regionBody mass index (BMI) 45.0-49.9, adult Home visit for evaluation and management of new patient requiring medically appropriate examination and moderate level of medical decision making. If using time, at least 60 minutes total time on [facility] 11/01/2024 Essential (primary) hypertensionType 2 diabetes mellitus with diabetic polyneuropathy Home visit for evaluation and management of new patient requiring medically appropriate examination and moderate level of medical decision making. If using time, at least 60 minutes total time on [facility] 11/01/2024 Essential (primary) hypertensionType 2 diabetes mellitus with diabetic polyneuropathy Home visit for evaluation and management of new patient requiring medically appropriate examination and moderate level of medical decision making. If using time, at least 60 minutes total time on [facility] 11/01/2024 Morbid (severe) obes ity due to excess calories Vital Signs Date of Collection Vitals 2024-11-01 12:35:00 Height - 152.4 cmWei ght - 107.05 kgBody Mass Index (BMI) - 46.09 kg/m2BP Diastolic - 65.0 mm[Hg]BP Systolic - 107.0 mm[Hg]Heart Rate - 75.0 /minRespiratory Rate - 18.0 /minO2 % BldC Oximetry - 99.0 % Social History Sex Female History of Procedures Procedures Service Procedure code Service date Servicing provider Phone# Home visit for evaluation and management of new patient requiring medically appropriate examination and moderate level of medical decision making. If using time, at least 60 [place] [id number] 2024-11-01 No Data Available No Data Availa ble Most recent systolic blood pressure <130 mm Hg 3074F 2024-11-01 No Data Available No Data Availa ble Most recent dystolic blood pressure <80 mm Hg 3078F 2024-11-01 No Data Available No Data Availa ble Patient screened for fall risk; no falls in the last year or 1 fall with no injury in the last year 1100F 2024-11-01 No Data Available No Data Avail able Functional Status Functional Category Effective Dates does not drive 2024-11-01 her children or daughter in law take her to stores, appts. etc. 2024-11-01 lives alone ( last ye ar) 2024-11-01 independent of ADL's; grab bars in [place] 2024-11-01 Mental Status Status Date no cognitive issues were noted 2024-10-16 7 Assessments Date of Service Assessments 2024-11-01 12:35:00 Moderate persistent asthma, uncomplicatedType 2 diabetes mellitus with diabetic polyneuropathyMixed hyperlipidemiaEssential (primary) hypertensionOSA (obstructive sleep apnea)Obesity, morbid, BMI 40.0-49.9Candidiasis of breastOther spondylosis with radiculopathy, lumbar region Plan of Care Date of Service Plans 2024-11-01 12:35:00 stablecontinue albut sim inhaler [id number] by PCPcontrolled with last A1C October 2023 was 5.4. Unable to review the 08/2024 resultcontinue Mounjaro injection weeklymanaged by PCPchroniccontinue atorvastatin 10 mg once dailyheart healthy dietBP controlledcontinue losartan 50 mg once dailycontinue drinking >60 oz water dailyencouraged to increase exercise amountdiscussed sodium and caffeine effects on BPchronicneeding a new sleep study, ordered by PCP, for reevaluation due to significant weight losscontinue current Bipapmanaged by PCPcontinued weight loss since starting Mounjaro weekly injectionencouraged increasing walking time or other modes of exercisemonitor weightcurrently treated with clotrimazole/betamethasone cream twice dailyRequesting nystatin powder as it is easier to apply and is more effectivechronic low back painlumbar MRI done 09/2024Neurosurgery appt on 11/12/2024 at 2:30 pm Goals Date Goal 2024-11-01 Neurosurgery appt on 11/12/2024 at 2:30 pm 2024-11-01 Counseled patient on both lifestyle changes and diabetes self- management education Health Concerns Date Concern 2024-11-01 Healthy House Calls is a service that involves a physician or advanced practice provider conducting comprehensive assessments in your patient s home or virtually to address crucial areas such as chronic conditions, quality gaps, social concerns, fall risk prevention, and various screenings. Please note that your patient will remain attributed to you even though they are participating in this service. If you have any questions, please reach out directly to our team at the phone number above.Your patient, Danielle Carter, 1960, was seen today for a Healthy House Call visit. Patient read rights and responsibilities and consented to treatment. The purpose of this summary is to update you on the patient's current health status and share any relevant findings from the examination. 2024-11-01 Healthy House Calls is a service that involves a physician or advanced practice provider conducting comprehensive assessments in your patient s home or virtually to address crucial areas such as chronic conditions, quality gaps, social concerns, fall risk prevention, and various screenings. Please note that your patient will remain attributed to you even though they are participating in this service. If you have any questions, please reach out directly to our team at the phone number above.Your patient, Danielle Carter, 1960, was seen today for a Healthy House Call visit. Patient read rights and responsibilities and consented to treatment. The purpose of this summary is to update you on the patient's current health status and share any relevant findings from the examination. 2024-11-01 A1C in October 2023 was 5.4. Unable to review recent A1C. Has been on Mounjaro since June 2023. She checks her blood sugars every couple of days. 2024-11-01 Gyne appt on 01/2025 . She is due for mammogram and DEXA bone scan. She skipped last year due to husbands in 02/2024. She is aware. 2024-11-01 Patient has a Neuros urgeon appt on November 12 for disc deterioration (L4-L5 are really bad); had recent lumbar MRI done. 2024-11-01 Patient reports she is to have a sleep study test done again - due to her weight loss (Lost about 60 lbs; was at 298#) and bipap parameters are off. Needs CPAP now, has been on Bipap since 2006. 2024-11-01 Will request from ei ther PCP or gyne dr for refill on nystatin powder as it works best.
--- NOTE | 2025-01-15 08:46 | P.SLEEP_ITS ---
Sleep Study Date of Study: 12/24/24 Ordering Provider: Danielle Agrawal APRN Interpreting Physician: Brooke Swanson DO Sleep Study Type: Split Polysomnogram Height: 1.52 m Weight: 100.244 kg Body Mass Index: 43.1 Neck Circumference (inches): 16 [place]: 11 Reason for Sleep Study Daytime hypersomnia Sleep History The patient is a 64-year-old female that had a sleep study ordered by her primary care for evaluation sleep apnea. The patient was previously diagnosed with severe sleep apnea and is on BPAP therapy. She has lost a significant amount of weight and she feels like her current pressure settings are too high. she occasionally awakens from sleep short of breath. She occasionally awakens at night with heartburn, belching or cough. She constantly snores loudly enough that others complain. She constantly has trouble sleeping when she has a cold. She occasionally wakes up gasping for air throughout the night. She occasionally sweats excessively at night. She occasionally has heart palpitat ions or irregular heartbeats during the night. She occasionally falls asleep during the day but never while driving. She rarely experiences loss of muscle tone when extremely emotional. She denies having trouble at school or work due to sleepiness. She occasionally feels unable to move while waking up or falling asleep. She rarely experiences vivid dreamlike scenes upon awakening or falling asleep. She denies feeling afraid of going to sleep. She denies having nightmares. She occasionally remembers her dreams. She occasionally has thoughts racing through her mind. She frequently feels sad, depressed and anxious. She occasionally has muscular tension. She denies noticing parts of her body jerk. She rarely kicks during the night. She constantly has crawling and aching feelings in her legs and constantly has leg pain during the night. She frequently grinds her teeth during sleep and frequently awakens with morning jaw pain. She is constantly bothered by pain during the day and frequently awakened by pain during the night. She occasionally wakes up feeling stiff in the morning. She occasionally wakes up with sore or achy muscles. She occasionally wakes up with pain in the neck, spine and other joints. She goes to bed between 830-9 p.m.. It takes her an hour to fall asleep. She wakes up several times throughout the night for unknown reasons and she is mostly unable to fall back asleep. She wakes up at 5:00 a.m. on weekdays and between 5-7 a.m. on the weekends. He typically gets 5-8 hours of sleep per nig ht. She will stay in bed for a few minutes after waking up in morning. She currently lives alone. She denies consuming any caffeinated beverages within 2 hours of bedtime. She denies reading before falling asleep. She denies watching television before falling asleep. She denies taking naps in afternoon or the evening. She denies consuming any caffeinated beverages throughout the day. She use to smoke cigarettes 30 years ago. She denies alcohol and recreational drug use. [facility] Past Medical History Medical History Pseudotumor cerebri History of cardioversion Cholelithiasis Type 2 diabetes mellitus Osteoarthritis HTN (hypertension) Hyperlipidemia Surgical History Surgical History History of endometrial biopsy History of surgical removal of lesion History of hysteroscopy Hx of umbilical hernia repair History of carpal tunnel release History of cholecystectomy 07/16/21 H/O hand surgery x2 Status post hysteroscopic polypectomy 2004 and 2017 H/O ventral hernia repair History of x 4 Family History Family History Father Family history of premature coronary heart disease, Onset Age: 64 Hypertension Family history of elevated blood lipids Family history of diabetes mellitus in first degree relative Patient's father is Mother Family history of premature coronary heart disease, Onset Age: 64 Hypertension Family history of elevated blood lipids Family history of diabetes mellitus in first degree relative Patient's mother is Other Cerebrovascular accident Diabetes mellitus Family history of arthritis Family history of gout Social History Social History Smoking status: Former smoker Tobacco type: cigarettes Second hand tobacco smoke exposure: No 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 Alcohol intake: never Substance use: never Substance use type: does not use Living arrangements: with family Occupation/Education: retired Gender identity (if verbalized by the patient): Female Sexual Orientation (if Verbalized by the Patient): Straight or Heterosexual Spiritual care concerns: No Agree to blood products: Yes Medications Home Medications ?Medication ?Instructions ?Recorded ?Confirmed ?Type progesterone micronized 100 mg 100 mg PO QPM 03/08/23 11/12/24 History capsule ergocalciferol (vitamin D2) 1,250 1,250 mcg PO .ever o ther week 08/02/23 08/30/24 History mcg (50,000 unit) capsule (Vitamin D2) pantoprazole 40 mg tablet,delayed 40 mg PO DAILY #90 t abs 06/21/24 11/12/24 Rx release atorvastatin 10 mg tablet See Rx Instructions .Route 0 06/22/24 11/12/24 Rx .COMPLEX #90 tabs meloxicam 15 mg tablet See Rx Instructions .Route 0 06/22/24 11/12/24 Rx .COMPLEX #90 tabs albuterol sulfate 90 mcg/actuation 2 inh inhalation Q4 H PRN shortness 07/06/24 11/12/24 Rx aerosol inhaler of breath or wheezing #8.5 g francesco fluticasone furoate 100 1 inh inhalation DAILY #60 e a 07/19/24 08/30/24 Rx mcg-vilanterol 25 mcg/dose inhalation powder (Breo Ellipta) losartan 50 mg tablet See Rx Instructions .Route 0 11/23/24 Rx .COMPLEX #90 tabs blood sugar diagnostic (FreeStyle #100 ea 12/21/24 Rx Lite Strips) blood-glucose meter (FreeStyle #1 ea 12/21/24 Rx Lite Meter kit) zolpidem 5 mg tablet 5 mg PO QHS PRN insomnia #1 tablet 12/24/24 Rx tirzepatide 10 mg/0.5 mL 10 mg (0.5 mL) subcut WEEKLY #2 mL 12/31/24 Rx subcutaneous pen injector (Tetounabbiro) lancets 28 gauge (FreeStyle #100 ea 01/09/25 Rx Lancets) Sleep Procedure A full night split study using the [employer] SleepM2 [employer] multi-channel system recorded the standard physiologic parameters including EEG, EOG, submentalis EMG, anterior tibialis EMG, EKG, body position, nasal and oral airflow using nasal pressure sensor and thermistor.? Respiratory parameters of chest and abdominal movements were recorded with Respiratory Inductance Plethysmography belts. Oxygen saturation was recorded by pulse oximetry. Video monitoring was also performed. Sleep stages, periodic limb movements, and EEG arousals were scored in 30 second epochs according to the criteria of the AASM Scoring Manual. The Apnea-Hypopnea Index was calculated using [facility] guidelines for definition of hypopnea with 4% O2 desaturations while scoring respiratory events. Sleep Architecture During the diagnostic portion of the study, the total recording time was 251.8 minutes. The total sleep time was 170.5 minutes. Sleep latency was 9.3 minutes.? REM latency was 151.5 minutes. Sleep Efficiency was 67.7%. The patient had 38 awakenings for an awakening index of 13.4. Wake after sleep onset time was 72.0 minutes. The patient spent 51.5 minutes, 30.2% of total sleep time in Stage N1. The patient spent 100.0 minutes, 58.7% in Stage N2. The patient spent 0.0 minutes, 0.0% in Stage N3. The patient spent 19.0 minutes, 11.1% in Stage REM sleep. At 03:03:45 AM the patient was placed on PAP treatment and was titrated at pressures ranging from 4 cm H20 up to 8 cm H20. During the treatment portion of the study, the total recording time was 178.0 minutes.? The total sleep time was 147.5 minutes. Sleep latency was 7.5 minutes. REM latency was 54.0 minutes. Sleep Efficiency was 82.8%. Wake after Sleep Onset time was 23.0 minutes. The patient spent 32.0 minutes, 21.7% of total sleep time in Stage N1. The patient spent 83.0 minutes, 56.3% in Stage N2. The patient spent 0.0 minutes, 0.0% in Stage N3. The patient spent 32.5 minutes, 22.0% in Stage REM. Respiratory Analysis During the diagnostic portion of the study, the patient had 85 hypopneas and 7 obstructive apneas for an overall Apnea Hypopnea Index of 32.4 events per hour. The REM Apnea Hypopnea Index was 47.4. The NREM Apnea Hypopnea Index was 30.5. The patient had a Central Apnea Hypopnea Index of 0. There was no evidence of Spencer-Ramirez Respirations. During the treatment portion of the study, the patient had 15 hypopneas for an overall Apnea Hypopnea Index of 6.1 events per hour. The REM Apnea Hypopnea Index was 11.1. The NREM Apnea Hypopnea Index was 4.7. The patient had a Central Apnea Hypopnea Index of 0. There was no evidence of Spencer-Ramirez Respirations. The patient was started on CPAP 4 cm H2O and titrated to CPAP 8 cm H2O due to hypopneas. The patient was able to fall asleep starting on CPAP 4 cm H2O. The patient was able to achieve REM sleep starting on CPAP 6 cm H2O. The patient was able to achieve a residual AHI less than 5 with both NREM and REM sleep on the final pressure setting. On CPAP 8 cm H2O, the patient spent 47 minutes in NREM and 4 minutes in REM with no respiratory events, resulting in an AHI of 0. The patient had a sleep efficiency of 93.6% on this pressure setting. Arousals During the diagnostic portion of the study, there were a total of 98 arousals for an arousal index of 34.5.? There were 13 respiratory arousals for an index of 4.6. There were 12 periodic limb movement arousals for an index of 4.2.? There were 12 isolated limb movement arousals for an index of 4.2. There were 61 spontaneous arousals for an index of 21.5. During the treatment portion of the study, there were a total of 41 arousals for an index of 16.7.? There were 0 respiratory arousals for an index of 0. There were 19 periodic limb movement arousals for an index of 7.7.? There were 5 isolated limb movement arousals for an index of 2.0. There were 18 spontaneous arousals for an index of 7.3. Periodic Limb Movements During the diagnostic portion of the study, the patient had 31 isolated limb movements with an index of 10.9. The patient had 33 periodic limb movements with an index of 11.6. The patient had a total of 64 limb movements with a total limb movement index of 22.5. During the treatment portion of the study, the patient had 9 isolated limb movements with an index of 3.7. The patient had 48 periodic limb movements with an index of 19.5, which is elevated (normal < 15). The patient had a total of 57 limb movements with a total limb movement index of 23.2. Oximetry Data During the diagnostic portion of the study, the patient had an average oxygen saturation of 96% in wake with a minimum oxygen saturation of 85% and a maximum oxygen saturation of 99%. The patient had an average oxygen saturation of 93.6% in sleep with a minimum oxygen saturation of 76.0% and a maximum oxygen saturation of 99.0%. The patient had 102 oxygen desaturations resulting in an Oxygen Desaturation Index of 35.9. The patient spent 7.8 minutes, 3.1% of total sleep time with an oxygen saturation less than 88%. During the treatment portion of the study, the patient had an average oxygen saturation of 95.6% in wake with a minimum oxygen saturation of 93.0% and a maximum oxygen saturation of 98.0%. The patient had an average oxygen saturation of 94.3% in sleep with a minimum oxygen saturation of 87.0% and a maximum oxygen saturation of 99.0%. The patient had 23 oxygen desaturations resulting in an Oxygen Desaturation Index of 9.4. The patient spent 0.4 minutes, 0.2% of total sleep time with an oxygen saturation less than 88%. Snoring Profile Mild snoring was present intermittently in the baseline portion of the study. The snoring resolved once the patient was titrated to CPAP 8 cm H2O. Cardiac Profile The EKG lead showed normal sinus rhythm. No arrhythmias or premature beats were seen. During the diagnostic portion of the study, the average pulse rate was 82.8 bpm.? The minimum pulse rate was 67.0 bpm. The maximum pulse rate was 105.0 bpm. During the treatment portion of the study, the average pulse rate was 78.6 bpm.? The minimum pulse rate was 70.0 bpm. The maximum pulse rate was 100.0 bpm. EEG Profile No signs of seizure activity seen. Assessment and Plan Assessment and Plan (1) Obstructive sleep apnea (adult) (pediatric): Code(s): G47.33 - Obstructive sleep apnea (adult) (pediatric) Status: Acute Assessment and Plan: In the baseline portion of the study, the patient had an overall AHI of 32.4 with desaturation down to 85%. This is consistent with severe sleep apnea. The patient was started on CPAP 4 cm H2O and titrated to CPAP 8 cm H2O due to hypopneas. The patient's sleep apnea resolved on the final pressure setting. I recommend that the patient be prescribed CPAP 8 cm H2O, size large Solo nasal pillows with chinstrap, CPAP filters/tubing and heated humidity. This should be used with all episodes of sleep.? Compliance should be reviewed within 31-90 days of starting therapy for usage greater than 4 hours per night greater than 70% of the nights. The patient should be asked about symptoms such as?excessive daytime sleepiness, quality of sleep, decreased nocturia, increased?mental functioning such as memory, mood, and concentration. Data The data obtained during this sleep study is adequate for interpretation. Certification This sleep study has been reviewed by a board certified sleep medicine physician.
[2025-01-17 10:29] VITALS: BMI 43.1
== END 2024-12-25 07:16 | disposition home or self-care (01) ==
LOC: ANHCSM 08:01
PROVIDERS: PCP Nurse Practitioner Family; Visit Provider Nurse Practitioner Family
DX: G47.33 Obstructive sleep apnea (adult) (pediatric) (principal)
CPT/HCPCS: 95811

== ENCOUNTER 2025-01-13 10:07 | Emergency (ER) | payer OTHER, MEDICAID, SELFPAY ==
--- NOTE | ~2025-01-13 | XR_ITS ---
Examination: XR knee RT 3V Clinical History: RT medial knee pain and instability 2yrs no injury Comparison: None Technique: 3 views right knee Findings/impression: 1. No fracture, dislocation, or effusion right knee. 2. Severe patellofemoral compartment joint space narrowing with vroq-gc-[id number] contact and large associated femoral degenerative changes. 3. Minimal lateral patellar subluxation. 4. Moderate medial compartment joint space narrowing. Reviewed, dictated and finalized at location R.
[2025-01-13 10:15] VITALS: BP 135/66; PULSE 74; RESP 18; TEMP 36.6; O2SAT 100
--- NOTE | 2025-01-13 10:21 | ED.GENADULT ---
HPI - General Adult General Chief complaint: Extremity Injury, Lower Stated complaint: Right Knee Pain Time Seen by Provider: 01/13/25 10:21 Source: patient, RN notes reviewed and old records reviewed Mode of arrival: ambulatory Limitations: no limitations History of Present Illness HPI narrative: 64-year-old female who presents to [facility] with complaints of 2 year history of increasing right knee pain with significant increase of pain in the past 2 month and in past 2 weeks she has fallen twice due to instability of her right knee. Patient reports that in 2019 she did sustain fall and was told that she sprained or strained her knee at that time. Patient reports that she takes Tylenol arthritis daily and also has been taking some Prednisone that her doctor ordered for her which has not helped. MD complaint: right knee pain Onset (ago): year(s) (yrs with increased symptoms past 2 month with recent instability and fall within past 2 weeks.) Location: right and lower extremity (knee) Severity scale (1-10): 5 Treatments prior to arrival: other (Tylenol arthritis and is on daily Meloxicam) Related Data Home Medications ?Medication ?Instructions ?Recorded ?Confirmed ?Last Taken ?Type progesterone micronized 100 mg 100 mg PO QPM 03/08/23 11/12/24 Unknown History capsule ergocalciferol (vitamin D2) 1,250 1,250 mcg PO .ever other week 08/02/23 08/30/24 Unknown History mcg (50,000 unit) capsule (Vitamin D2) Allergies Allergy/AdvReac Type Severity Reaction Status Date / Time vaccine adjuvant system, AdvReac Intermediate Other Verified 01/13/25 10:09 AS01B liposomal (From Shingrix (PF)) varicella-zoster virus AdvReac Intermediate Other Verified 01/13/25 10:09 glycoprotein E, recombinant (From Shingrix (PF)) metformin AdvReac Unknown Gastrointestinal Verified 01/13/25 10:09 Upset Review of Systems Review of Systems: CONSTITUTIONAL: Denies fever, chills, or sweats. EYES: Denies visual changes, redness, or discharge. ENT: Denies rhinorrhea, congestion, sore throat, or otalgia. CARDIOVASCULAR: Denies chest pain, palpitations, or edema. RESPIRATORY: Denies cough or dyspnea. GASTROINTESTINAL: Denies abdominal pain, nausea, vomiting, or diarrhea. GENITOURINARY: Denies dysuria or hematuria. SKIN: Denies rash or itching. MUSCULOSKELETAL: reports chronic back pain,positive for right knee pain, or myalgia. NEUROLOGIC: Denies headache, numbness, or weakness. PSYCHIATRIC: Positive for history of anxiety or depression. All systems reviewed & are unremarkable except as noted in HPI and below PMFSH Past Medical History Medical History Pseudotumor cerebri History of endometrial biopsy History of cardioversion Cholelithiasis Type 2 diabetes mellitus Osteoarthritis HTN (hypertension) Hyperlipidemia Surgical History Surgical History History of surgical removal of lesion History of hysteroscopy Hx of umbilical hernia repair History of carpal tunnel release History of cholecystectomy 07/16/21 H/O hand surgery x2 Status post hysteroscopic polypectomy 2004 and 2017 H/O ventral hernia repair History of x 4 Family History Family History Father Family history of premature coronary heart disease, Onset Age: 64 Hypertension Family history of elevated blood lipids Family history of diabetes mellitus in first degree relative Patient's father is Mother Family history of premature coronary heart disease, Onset Age: 64 Hypertension Family history of elevated blood lipids Family history of diabetes mellitus in first degree relative Patient's mother is Other Cerebrovascular accident Diabetes mellitus Family history of arthritis Family history of gout Social History Social History Smoking status: Former smoker Tobacco type: cigarettes Second hand tobacco smoke exposure: No 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 There is no relevant family history pertinent to the presenting complaint Exam Narrative: GENERAL: Well-appearing, well-nourished, obese,and in no acute distress. HEAD: Normocephalic, atraumatic. EYES: PERRLA and EOMI. ENT: Nares clear, no rhinorrhea or epistaxis. Mucous membranes moist. NECK: Supple.no lymphadenopathy CHEST: Clear to auscultation. No respiratory distress.SAO2 100% on room air HEART: Regular rate and rhythm. No murmur heard. Normal peripheral pulses. ABDOMEN: Soft, nontender, nondistended, normal active bowel sounds. EXTREMITIES: Normal range of motion. No edema.Exception noted to right knee pain which has increased in intensity. Patient reports pain to medial aspect of her right knee with palpable discomfort on exam,increased pain with bending and ambulation, increased pain with varus and valgus maneuvers, sensation and circulation intact to right leg,. SKIN: Warm, dry, no rash. NEURO: No focal deficits. Alert and oriented x3. Course Course Emergency Course: Patient is aware of diagnosis, understands and agrees to treatment plan.? Anticipatory guidance given.? Patient agrees to follow-up as directed and is aware of reasons to seek care at the emergency department. Portions of this record may have been created with voice recognition software Level of Care: Express Care Visit Vital Signs Vital signs: Vital Signs Temperature 36.6 C 01/13/25 10:15 Pulse Rate 74 01/13/25 10:15 Respiratory Rate 18 01/13/25 10:15 Blood Pressure 135/66 01/13/25 10:15 Pulse Oximetry 100 01/13/25 10:15 Oxygen Delivery Room Air 01/13/25 10:15 Temperature 36.6 C 01/13/25 10:15 Pulse Rate 74 01/13/25 10:15 Respiratory Rate 18 01/13/25 10:15 Blood Pressure 135/66 01/13/25 10:15 Pulse Oximetry 100 01/13/25 10:15 Oxygen Delivery Room Air 01/13/25 10:15 Reviewed Medical Decision Making MDM Narrative Medical decision making narrative: Exam findings and imaging show no acute concerns or changes; patient is non-toxic appearing and is in no distress.? Patient is appropriate for outpatient treatment and follow-up Differential Diagnosis Differential Diagnosis: acute pain right knee, osteoarthritis right knee, instability right knee, minimal patellar subluxation Medical Records Medical records reviewed: Yes I reviewed the external patient's medical records. Vital Signs Vital Signs: Vital Signs Temperature 36.6 C 01/13/25 10:15 Pulse Rate 74 01/13/25 10:15 Respiratory Rate 18 01/13/25 10:15 Blood Pressure 135/66 01/13/25 10:15 Pulse Oximetry 100 01/13/25 10:15 Oxygen Delivery Room Air 01/13/25 10:15 Temperature 36.6 C 01/13/25 10:15 Pulse Rate 74 01/13/25 10:15 Respiratory Rate 18 01/13/25 10:15 Blood Pressure 135/66 01/13/25 10:15 Pulse Oximetry 100 01/13/25 10:15 Oxygen Delivery Room Air 01/13/25 10:15 reviewed Imaging Data Attestation: I personally reviewed and interpreted this imaging study as follows: My impression: severe patellofemoral compartment joint space narrowing with bone on bone osteoarthritis, minimal patellar subluxation laterally Radiologist's impression: [facility] [address] [place] [address] XRay Report Signed Patient: Danielle Carter : 1960 MR#: [id number] Age: 64 Acct:[id number] Loc: [facility] ADM Date: 01/13/25Attending Dr: Ordering Physician: Keya Clements APRN Date of Service: 01/13/25 Procedure(s): XR knee RT 3V Accession Number(s): [id number] cc: Keya Clements APRN; Danielle Agrawal APRN~ Examination: XR knee RT 3V Clinical History: RT medial knee pain and instability 2yrs no injury Comparison: None Technique: 3 views right knee Findings/impression: 1. No fracture, dislocation, or effusion right knee. 2. Severe patellofemoral compartment joint space narrowing with [id number] contact and large associated femoral degenerative changes. 3. Minimal lateral patellar subluxation. 4. Moderate medial compartment joint space narrowing. Reviewed, dictated and finalized at location R. Please be advised this is a medical document. It is intended for [id number] communication. It is written in medical language and may contain unfamiliar abbreviations or verbiage. Medical documents are intended to carry relevant information, facts as evident, and the clinical opinion of the practitioner at the time of the encounter. This report may have been done utilizing a voice recognition system. Attempts have been made to correct errors. However, there may be uncorrected grammatical, spelling, and recognition errors present. The file time of this note does not necessarily represent the time of service. Dictated By: Rogerio Cisse MD 01/13/25 1041 Signed By: <Electronically signed by Rogerio Cisse MD in OV> Critical Care Time Critical Care Time Critical Care Time: No Discharge Plan Discharge Clinical Impression: Patellofemoral arthritis of right knee, Acute pain of right knee Patient Disposition: Home Condition: Stable Instructions: Antibiotic Form, Osteoarthritis (ED) Additional Instructions: topical medication to right knee such as Biofreeze, Bengay with Lidocaine, Tylenol for lesser pain recommend Tylenol Arthritis 1 tab every 8 hours routinely Continue meloxicam as prescribed Follow-up with orthopedic surgeon for recommendation from primary care provider Follow-up with PCP if further problems or concerns Ice to the area 20-30 minutes 4-6 times a day Elevate above heart If your symptoms persist, change or worsen significantly before you can contact your personal physician then please, without delay, go to the emergency department for further evaluation. Follow-up with PCP in 7-10 days or sooner if needed Follow up with PCP soon in regards to your blood pressure which is elevated above threshold for referral. Blood pressure above 120/80 may indicate pre-hypertension. 135/66 mildly systolic elevation Patient Language: Citizen Of [place] Prescriptions: No Action progesterone micronized 100 mg capsule 100 mg PO QPM ergocalciferol (vitamin D2) [Vitamin D2] 1,250 mcg (50,000 unit) capsule 1,250 mcg PO .ever other week pantoprazole 40 mg tablet,delayed release (DR/EC) 40 mg PO DAILY Qty: 90 2RF atorvastatin 10 mg tablet See Rx Instructions .ROUTE .COMPLEX Qty: 90 2RF Dose Instruction: TAKE 1 TABLET BY MOUTH EVERY DAY Rx Instructions: TAKE 1 TABLET BY MOUTH EVERY DAY meloxicam 15 mg tablet See Rx Instructions .ROUTE .COMPLEX Qty: 90 2RF Dose Instruction: 15 MG ORALLY DAILY Rx Instructions: 15 MG ORALLY DAILY albuterol sulfate 90 mcg/actuation HFA aerosol inhaler 2 inh inhalation Q4H PRN (Reason: shortness of breath or wheezing) Qty: 8.5 3RF fluticasone furoate-vilanterol [Breo Ellipta] 100-25 mcg/dose blister with device 1 inh inhalation DAILY Qty: 60 3RF losartan 50 mg tablet See Rx Instructions .ROUTE .COMPLEX Qty: 90 2RF Dose Instruction: TAKE 1 TABLET BY MOUTH ONCE DAILY Rx Instructions: TAKE 1 TABLET BY MOUTH ONCE DAILY (DME) FreeStyle Lite Strips Strip See Rx Instructions .Route Qty: 100 0RF Rx Instructions: daily (DME) blood-glucose meter [FreeStyle Lite Meter] Kit See Rx Instructions .Route Qty: 1 0RF Rx Instructions: daily zolpidem 5 mg tablet 5 mg PO QHS PRN (Reason: insomnia) Qty: 1 0RF Mounjaro 10 mg/0.5 mL pen injector 10 mg subcut WEEKLY Qty: 2 0RF (DME) lancets [FreeStyle Lancets] 28 gauge misc See Rx Instructions .Route Qty: 100 5RF Rx Instructions: daily Follow-up/Referrals: Danielle Agrawal APRN [Primary Care Provider, Family Practice] Time of Disposition: 11:16 Quality Eddie Coma Scale Eyes: Open Verbal: Oriented and Alert Motor: Follows Commands [place] Coma Total Score: 15
== END 2025-01-13 11:25 | disposition home or self-care (01) ==
PROVIDERS: Emergency Provider Registered Nurse; PCP Nurse Practitioner Family
DX: M17.11 Unilateral primary osteoarthritis, right knee (principal); M25.561 Pain in right knee; E11.9 Type 2 diabetes mellitus without complications; Z79.85 Long-term (current) use of injectable non-insulin antidiabetic drugs; I10 Essential (primary) hypertension; E78.5 Hyperlipidemia, unspecified; M19.90 Unspecified osteoarthritis, unspecified site
CPT/HCPCS: 73562; 99213; G0463